=== PATIENT | male | born 1975 ===

== ENCOUNTER 2023-01-04 20:02 | Emergency (ER) | payer SELFPAY ==
[2023-01-04 20:39] LABS: ANION GAP 14.3 mEq/L (7-13)
[2023-01-04 20:43] LABS: PTT,PARTIAL THROMBOPLSTIN TIME 25.6 SEC (22.0-34.0)
== END 2023-01-04 21:49 ==
LOC: DL.ED 20:02
DX: G93.5 Compression of brain (principal); R22.0 Localized swelling, mass and lump, head; Z20.822 Contact with and (suspected) exposure to COVID-19
CPT/HCPCS: 36415; 70450; 80053; 83735; 84484; 85025; 85610; 85730; 93005; 93010; 99285; U0002